=== PATIENT | male | born 1955 | race Two or more races ===

== ENCOUNTER 2018-12-19 07:44 | Emergency (ER) | payer OTHER, SELFPAY ==
[~2018-12-19] VITALS: Ht 170.2 cm; Wt 74.0 kg
--- NOTE | 2018-12-19 07:52 | NUR ---
pt brought in by [facility] after sitting in the rain all night. pts clothes are wet. pt presents undressed. bear paw gown and heater are used. cardiac, o2 and bp monitoring in place.
[2018-12-19 08:58] LABS: BASOPHILS # (AUTO) 0.02 x10^3/uL (0-0.1); BASOPHILS % (AUTO) 0 % (0-1); EOSINOPHILS # (AUTO) 0.05 x10^3/uL (0-0.4); EOSINOPHILS % (AUTO) 1 % (1-7); LYMPHOCYTES % (AUTO) 12 % (22-44); MD NO; MEAN CORPUSCULAR HEMOGLOBIN 31.3 pg (27.5-34.5); MEAN CORPUSCULAR HGB CONC 33.6 g/dL (33.2-36.2); MEAN CORPUSCULAR VOLUME 93.1 fL (81-97); MEAN PLATELET VOLUME 7.3 fL (7.4-10.4); MONOCYTES # (AUTO) 0.53 x10^3/uL (0.2-0.8); MONOCYTES % (AUTO) 6 % (2-9); NEUTROPHILS % (AUTO) 81 % (42-75); PLATELET COUNT 274 x10^3/uL (130-400); RED BLOOD COUNT 4.99 x10^6/uL (4.38-5.82); RED CELL DISTRIBUTION WIDTH 14.1 % (9.4-14.8)
[2018-12-19 09:07] VITALS: BP 112/65
[2018-12-19 09:09] LABS: ALANINE AMINOTRANSFERASE 133 U/L (12-78); ALBUMIN 3.7 g/dL (3.4-5.0); ANION GAP 7 mmol/L (5-15); CALCIUM 9.1 mg/dL (8.5-10.1); CHLORIDE 103 mmol/L (98-107)
[2018-12-19 09:11] LABS: ALKALINE PHOSPHATASE 64 U/L (45-117); TOTAL PROTEIN 7.5 g/dL (6.4-8.2)
== END 2018-12-19 11:32 | disposition home or self-care (01) ==
LOC: ED 10:58
DX: R94.5 Abnormal results of liver function studies (principal); F15.10 Other stimulant abuse, uncomplicated; F10.10 Alcohol abuse, uncomplicated; Z72.9 Problem related to lifestyle, unspecified; Z75.9 Unspecified problem related to medical facilities and other health care; Z91.14 Patient's other noncompliance with medication regimen; Z63.8 Other specified problems related to primary support group; Y90.9 Presence of alcohol in blood, level not specified
CPT/HCPCS: 36415; 76700; 80053; 83690; 85025; 93005; 99284

== ENCOUNTER 2019-02-01 10:13 | Emergency (ER) | payer SELFPAY ==
[~2019-02-01] VITALS: Ht 170.2 cm; Wt 72.1 kg
--- NOTE | 2019-02-01 10:25 | NUR ---
PT AMBULATORY WITH STEADY GAIT TO ROOM
--- NOTE | 2019-02-01 10:59 | NUR ---
63 Y/O MALE PRESENTS TO ED WITH C/O "I HAVE HEART ISSUES. I CAN'T HOLD ON TO THINGS SOMETIMES. I'VE ALSO HAD SHARP SHOOTING PAINS OFF AND ON SINCE MY SURGERY 10/2017. I DON'T KNOW WHAT KIND OF SURGERY I HAD. IT WAS AT [facility]. I ALSO GET DIZZY SOMETIMES FOR THE LAST TWO WEEKS." NO C/O N/V/D, TRAUMA, SYNCOPE, SOB. 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
[2019-02-01] MEDS ORDERED: ASPIRIN 81 MG TABLET CHEW PO ONE (11:00)
[2019-02-01 11:16] LABS: BASOPHILS # (AUTO) 0.04 x10^3/uL (0-0.1); BASOPHILS % (AUTO) 1 % (0-1); EOSINOPHILS # (AUTO) 0.08 x10^3/uL (0-0.4); EOSINOPHILS % (AUTO) 1 % (1-7); LYMPHOCYTES # (AUTO) 1.23 x10^3/uL (1-3.4); LYMPHOCYTES % (AUTO) 17 % (22-44); MD NO; MEAN CORPUSCULAR HGB CONC 33.6 g/dL (33.2-36.2); MEAN CORPUSCULAR VOLUME 92.1 fL (81-97); MEAN PLATELET VOLUME 7.1 fL (7.4-10.4); MONOCYTES # (AUTO) 0.51 x10^3/uL (0.2-0.8); MONOCYTES % (AUTO) 7 % (2-9); NEUTROPHILS # (AUTO) 5.54 x10^3/uL (1.8-6.8); NEUTROPHILS % (AUTO) 75 % (42-75); PLATELET COUNT 319 x10^3/uL (130-400); RED BLOOD COUNT 4.55 x10^6/uL (4.38-5.82); RED CELL DISTRIBUTION WIDTH 14.3 % (9.4-14.8)
[2019-02-01] MEDS ORDERED: ASPIRIN 81 MG TABLET EC ONE (11:18)
[2019-02-01] MEDS ORDERED: ASPIRIN 81 MG TABLET CHEW ONE (11:20)
--- NOTE | 2019-02-01 11:21 | NUR ---
PT RESTING ON GURNEY. NO ACUTE DISTRESS NOTED. NO NEEDS REQUESTED AT THIS TIME.
[2019-02-01 11:27] LABS: ALBUMIN 3.5 g/dL (3.4-5.0); ANION GAP 4 mmol/L (5-15); CALCIUM 8.2 mg/dL (8.5-10.1); CHLORIDE 107 mmol/L (98-107); CREATININE 1.02 mg/dL (0.7-1.3)
[2019-02-01 11:31] LABS: TROPONIN I < 0.015 ng/mL (0.000-0.045)
--- NOTE | 2019-02-01 12:45 | NUR ---
BREAK RN. PT RESTING IN POSITION OF COMFORT. DENIES NEED TO USE RESTROOM. VSS. SR ON MONITOR. AWAITING RECHECK. CALL LIGHT IN REACH. FALL PRECUATIONS IN PLACE.
--- NOTE | 2019-02-01 12:45 | NUR ---
BEDSIDE REPORT TO DALILA REYNOLDS
--- NOTE | 2019-02-01 13:30 | NUR ---
BREAK RN. DR. LEMON AT BEDSIDE FOR RECHECK. AWAITING CHART AND DISCHARGE PAPERS
[2019-02-01 13:45] VITALS: BP 121/82
--- NOTE | 2019-02-01 13:45 | NUR ---
BREAK RN. EARNEST RN AT BEDSIDE TO ASSIST WITH PT DISCHARGE. VSS. REMAINS SR ON MONITOR.
== END 2019-02-01 14:06 | disposition home or self-care (01) ==
LOC: ED 12:47
DX: R07.89 Other chest pain (principal); R06.00 Dyspnea, unspecified
CPT/HCPCS: 36415; 71046; 80048; 82040; 83880; 84484; 85025; 93005; 99284

== ENCOUNTER 2019-05-30 19:10 | Emergency (ER) | payer OTHER ==
[~2019-05-30] VITALS: Ht 170.2 cm; Wt 71.8 kg
[2019-05-30 19:13] VITALS: BP 106/71
== END 2019-05-30 20:10 | disposition home or self-care (01) ==
LOC: ED 19:32
DX: S30.21XA Contusion of penis, initial encounter (principal); Z87.891 Personal history of nicotine dependence; Z72.9 Problem related to lifestyle, unspecified; W01.0XXA Fall on same level from slipping, tripping and stumbling without subsequent striking against object, initial encounter; Y93.89 Activity, other specified; Y92.410 Unspecified street and highway as the place of occurrence of the external cause; Y99.8 Other external cause status
CPT/HCPCS: 99281